=== PATIENT | female | born 1950 | race Caucasian/White ===

== ENCOUNTER 2019-03-02 23:06 | Inpatient (IN) ==
[2019-03-03 01:04] LABS: BASO# 0.02 X1000 (0.0-0.2); BASO% 0.3 % (0.0-0.8); EOS# 0.19 X1000 (0.0-0.7); EOS% 3.1 % (0.0-10.0); HEMATOCRIT 38.4 % (37.0-47.0); HEMOGLOBIN 13.2 g/dL (12.0-16.0); IMM GRAN# 0.01 X1000 (0.0-0.04); IMM GRAN% 0.2 % (0.0-0.5); LYMPH# 1.83 X1000 (1.2-3.4); LYMPH% 30.3 % (20.5-51.1); MCH 30.6 PG (27-31); MCHC 34.4 g/dL (33-37); MCV 88.9 FL (81-99); MONO# 0.48 X1000 (0.11-0.59); MONO% 7.9 % (1.7-9.3); MPV 10.2 FL (7.4-10.4); NEUT# 3.51 X1000 (1.4-6.5); NEUT% 58.2 % (42.2-75.2); PLT 213 X1000 (130-400); RBC 4.32 XMIL (4.2-5.4); RDW 12.7 % (11.5-14.5); WBC 6.04 X1000 (4.8-10.8)
[2019-03-03 01:19] LABS: AGAP 13; ALBUMIN 4.1 g/dL (3.5-5.0); ALKALINE PHOSPHATASE 102 U/L (32-104); BUN 16 mg/dL (8-22); CALCIUM 9.5 mg/dL (8.8-10.2); CHLORIDE 96 mmol/L (98-107); COSMO 286; CREATININE 0.7 mg/dL (0.5-0.9); ESTIMATED GFR > 60; GLUCOSE 171 mg/dL (70-104); GOT 28 U/L (10-30); GPT 26 U/L (10-36); POTASSIUM 3.1 mmol/L (3.5-5.1); SODIUM 141 mmol/L (136-145); TCO2 33 mmol/L (25-35); TOTAL PROTEIN 7.4 g/dL (6.3-8.3)
[2019-03-03 01:40] LABS: BILIRUBIN URINE NEGATIVE (NEGATIVE); BLOOD URINE TRACE (NEGATIVE); GLUCOSE URINE NEGATIVE (NEGATIVE); KETONE URINE NEGATIVE (NEGATIVE); LEUKOCYTES URINE 2+ (NEGATIVE); NITRITE URINE POSITIVE (NEGATIVE); PH URINE 6.5; PROTEIN URINE TRACE mg/dL (NEGATIVE); UROBILINOGEN URINE NORMAL
[2019-03-03 01:41] LABS: CLARITY SL. CLOUDY (CLEAR); COLOR YELLOW; URINE BACTERIA 4+ /HFP; URINE EPITHELIAL CELLS <10 /HPF (<10); URINE RBC TNTC /HPF (<10); URINE SOURCE CLEAN CATCH; URINE WBC 20-40 /HPF (<10)
[2019-03-03] MEDS ORDERED: ROCEPHIN 1 GM in NS 50 ML IV ONE (02:10)
[2019-03-03] MEDS ORDERED: KLOR-CON PO ONE (02:43)
--- NOTE | 2019-03-03 02:46 | PROVIDER DOCUMENTATION ---
This chart was entered by Valeria Elena Scribe, acting as scribe for Sid Teague MD. HPI-General Adult - General Chief Complaint: Fall Stated Complaint: FALL Time Seen by Provider: 03/03/19 00:26 Source: patient Allergies/Adverse Reactions: Patient Allergies Allergy/AdvReac Type Severity Reaction Status Date / Time No Known Allergies Allergy Verified 03/02/19 23:23 - History of Present Illness -Gen Adult Nature of Presenting Problems: Pt is 68/F presenting to ED after having an episode where she went to the kitchen to put something away in the sink and she lost her balance and fell onto her knees. Pt has has had multiple episodes of feeling unsteady and wobbly recently. She had fallen back into her chair just a few days prior. She sts that she has had a h/a for the last 2 weeks. The pain is more nagging than a severe h/a. Has not taken any medication for h/a. Pt has significant familial cardiac hx, w/ losing both parents in their 60's to PR. She has siblings that have also had PR, but are not at this time. Pt has not had PR , does have HTN and is on lasix. Location of Pain/Injury: reports: generalized Pain Radiation: reports: no radiation Severity: reports: mild Onset/Duration: reports: gradual Timing: reports: still present Context/Activities at Onset: reports: light activity Modifying Factors: improves with: nothing Associated Symptoms: denies: chest pain, cough, nausea, shortness of breath, vomiting Similar Symptoms Previously?: No Recently seen or treated by another doctor?: No Review of Systems - Adult - REVIEW OF SYSTEMS - ADULT Constitutional: reports: no symptoms reported. denies: chills, fever Eyes: reports: no symptoms reported Ears, Nose, Mouth & Throat: reports: no symptoms reported Cardiovascular: reports: no symptoms reported Respiratory: reports: no symptoms reported. denies: cough, shortness of breath, wheezing Gastrointestinal: reports: no symptoms reported. denies: abdominal pain, diarrhea, nausea, vomiting Genitourinary: reports: no symptoms reported Musculoskeletal: reports: no symptoms reported. denies: back pain, neck pain Integumentary: reports: no symptoms reported Neurological: reports: no symptoms reported Psychiatric: reports: no symptoms reported Endocrine: reports: no symptoms reported Hematologic/Lymphatic: reports: no symptoms reported Allergic/Immunologic: reports: no symptoms reported All Other Systems: Reviewed and Negative Past History - Adult - PAST MEDICAL HISTORY-ADULT Review of Records: reports: Old Records Reviewed, Nursing Assessment Review, Medications Reviewed, Social history reviewed & non-contributory. - SOCIAL HISTORY Smoking: quit greater than 1 year Substance Use: none/never Alcohol Use Frequency: never Living Situation: alone Physical Exam-General - PHYSICAL EXAM-ADULT Initial Vital Signs Reviewed: Yes - CONSTITUTIONAL General Appearance: appears well, alert, no apparent distress - EYES Eyes: PERRL/EOMI, pink conjunctivae - HEAD, EARS, NOSE, MOUTH & THROAT HENMT: normocephalic/atraumatic, moist mucous membranes, normal ENT inspection, TMs normal, pharynx normal - NECK Neck: non-tender, full range of motion, supple, normal inspection - RESPIRATORY Respiratory: lungs clear - CARDIOVASCULAR Cardiovascular: regular rate, rhythm - GASTROINTESTINAL (ABDOMEN) Abdominal Exam: normal bowel sounds, non tender, soft - LYMPHATIC Lymphatic: no adenopathy - MUSCULOSKELETAL Back Exam: normal inspection, no CVA tenderness, no vertebral tenderness Extremity: normal range of motion, non-tender, normal gait, normal inspection, other (bilat swelling to ankles) - SKIN Integumentary: normal color, warm/dry - NEUROLOGIC Neurologic: grossly normal - PSYCHIATRIC Psych/Mental Status: normal mood/affect, normal thought content, normal thought process, oriented x 3 Progress - PLAN OF CARE/RESULTS Progress/Plan/Lab Results: Vital Signs - 8 hr 03/02/19 23:12 Temperature 98.1 F Pulse Rate 91 H Respiratory Rate 20 Blood Pressure 145/66 O2 Sat by Pulse Oximetry 95 Orders Category Date Time Status Nursing- Obtain EKG ONCE Care 03/03/19 00:29 Active cxr [CHEST-1 VIEW] [RAD] Stat Exams 03/03/19 00:30 Ordered CBC WITH ELECTRONIC DIFF [HEME] Stat Lab 03/03/19 00:29 Uncollected COMPREHENSIVE METABOLIC PANEL [CHEM] Stat Lab 03/03/19 00:29 Uncollected TROPONIN T Stat Lab 03/03/19 00:[address] W/POSS RFLX CULT [URINALYSIS] Stat Lab 03/03/19 00:29 Uncollected EKG [EKG] Stat Ther 03/03/19 00:29 Ordered Result Diagrams: 03/03/19 00:50 03/03/19 00:50 - EKG 1 Time of EKG reading by physician:: 00:56 EKG Read and Signed by:: Sid Teague EKG Interpretation (*Must complete 3 of following elements*): Abnormal (Normal sinus rhythm, Moderate voltage criteria for LVH, may be normal variant, Nonspecific St and T wave abnormality, Abnormal ECG) Rate: 84 Rhythm: sinus Festus: normal QRS: normal [place] Interval: normal ST Wave: normal - CONSULTS/PCP/HOSPITALIST Notification #1 *Consult/PCP/Hospitalist*: [place] for Dr Victoria Time Discussed: 02:45 Consult Disposition: Admit Departure - Departure Date of Disposition Decision: 03/03/19 Time of Disposition Decision: 02:45 DIAGNOSIS: UTI (urinary tract infection), Weakness, Hypokalemia Disposition: ADMITTED INPATIENT 09 Certified Medical Emergency: Emergent Condition: Fair Referrals and Follow-Ups: Nani Burgess MD [Primary Care Provider] - - Critical Care Note This patient required my direct & personal management of CC.: No Attestation - Physician/ HECTOR Attestation Patient care was provided by Advanced Practice Provider:: No The physician spent face to face time with patient:: Yes Advanced Practice Provider documentation review:: Supervising physician onsite and consulted in the evaluation and care of this patient. The physician did have a face to face encounter with the patient. This chart was documented by the indicated scribe, (Valeria Elena, Scribe) and accurately reflects the services I performed and decisions made by me, Sid Teague MD, as attested by the provider's signature.
[2019-03-03] MEDS ORDERED: ZOFRAN IV PRN (04:39)
[2019-03-03] MEDS ORDERED: TYLENOL PO PRN (04:39)
[2019-03-03] MEDS: NS 1,000 ML IV SCH ×2 (05:55→19:39)
--- NOTE | 2019-03-03 06:18 | Diag Imaging Result Doc PS360 ---
EXAM: CHEST-1 VIEW HISTORY: weakness, htn TECHNIQUE: Chest single view COMPARISON: None. FINDINGS: The lungs are well expanded. The heart is not enlarged. The vessels are not distended. There are no infiltrates. No effusion identified. IMPRESSION: Negative exam. Electronically signed by Efren Mensah 03/03/2019 6:16 AM
[2019-03-03] MEDS ORDERED: LUNESTA PO PRN ×2 (08:42→08:48)
--- NOTE | 2019-03-03 08:51 | EKG Report ---
Test Performed on : 03/03/2019 00:56:10 AM Test Reason : weakness Blood Pressure : / mmHG Vent. Rate : 084 BPM Atrial Rate : 084 BPM P-R Int : 140 ms QRS Dur : 078 ms QT Int : 374 ms P-R-T Axes : 051 -11 000 degrees QTc Int : 441 ms Normal sinus rhythm. Moderate voltage criteria for LVH, may be normal variant Nonspecific ST and T wave abnormality Abnormal ECG No previous ECGs available Unconfirmed Result
[2019-03-03] MEDS ORDERED: HYDROCHLOROTHIAZIDE PO SCH (09:00)
[2019-03-03] MEDS ORDERED: HYZAAR 100/12.5 MG TAB PO SCH (09:00)
[2019-03-03 09:03] LABS: AGAP 9; BUN 13 mg/dL (8-22); CALCIUM 9.4 mg/dL (8.8-10.2); CHLORIDE 98 mmol/L (98-107); COSMO 286; CREATININE 0.6 mg/dL (0.5-0.9); ESTIMATED GFR > 60; GLUCOSE 215 mg/dL (70-104); POTASSIUM 3.8 mmol/L (3.5-5.1); SODIUM 140 mmol/L (136-145); TCO2 33 mmol/L (25-35)
--- NOTE | 2019-03-03 10:10 | HISTORY AND PHYSICAL ---
PRIMARY CARE PHYSICIAN: Dr. Nani Burgess. CHIEF COMPLAINT: A fall and a headache for 2 weeks. HISTORY OF PRESENTING ILLNESS: This is a 68-year-old female, who presents to [facility] ER after she states that she was in her kitchen and went to put something in her sink, lost her balance, and fell onto her knee. She has had multiple episodes of feeling unsteady recently, states that she had fallen back in her chair a few days prior, states she has had a headache for the past 2 weeks but had not taken anything for the headache. 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 She is also being worked up at this time on an outpatient basis for a suspicious mass in her right breast that is being followed by a general surgeon here in [place] and has a scheduled biopsy next week. Her workup showed a potassium of 3.1 that was supplemented with 20 of potassium in the emergency room. Her urinalysis showed positive nitrites, 2+ white blood cells, 4+ bacteria. Chest x-ray was negative. She will be admitted for further evaluation and treatment. PAST MEDICAL HISTORY: Hypertension and restless leg syndrome. PAST SURGICAL HISTORY: Left ovarian cyst removed, tonsillectomy, bilateral tubal ligation, and a cholecystectomy. FAMILY HISTORY: Heart disease in both of her parents. Her sister also had an OK. SOCIAL HISTORY: She currently lives alone. Is a former smoker but quit 10 years ago, none currently, and denied any alcohol or illicit drug use. ALLERGIES: She has no known drug allergies. HOME MEDICATIONS: She takes aripiprazole 2 mg p.o. at bedtime, zopiclone 1 mg p.o. at bedtime p.r.n., Lasix 20 mg p.o. daily, Berne 5 1 p.o. at bedtime, losartan/HCTZ 1 p.o. daily, potassium 10 mEq p.o. daily will be held, Lyrica 75 mg p.o. b.i.d, and ropinirole 4 mg p.o. at bedtime. LABORATORY DATA: Showed a white blood cell count of 6.04, hemoglobin 13.2, hematocrit 38.4, platelets 213. Sodium 141, potassium 3.1, chloride 96, CO2 33, BUN of 16, creatinine 0.7, glucose 171. Urinalysis with positive nitrites, 2+ white blood cells, 4+ bacteria. Chest x-ray showed a negative exam. REVIEW OF SYSTEMS: She denied any fever, chills, blurred vision. She has had some mild dizziness and a headache. Denied any chest pain, coughing, shortness of breath. Denied any abdominal pain, constipation, diarrhea, burning, hurting, urgency, frequency with urination. PHYSICAL EXAMINATION: VITAL SIGNS: On arrival, she had a temperature of 98.1, pulse 91, respirations 20, blood pressure 145/66, saturating 95% on room air. GENERAL: This is a 68-year-old female, who is sitting on the side of the bed, answers questions appropriately. HEEMNT: Normocephalic, atraumatic. Normal ENT inspection. Oropharynx and nares are clear. Eyes: Pupils are equal, round, and reactive to light and accommodation. Extraocular movements are intact. NECK: Normal inspection. Normal range of motion. LUNGS: Clear to auscultation bilaterally with equal lung expansion and chest wall movement. HEART: With regular rate and rhythm. No murmurs, rubs, or gallops. ABDOMEN: Soft, nontender, nondistended. Bowel sounds are present x4 quadrants. MUSCULOSKELETAL: She has 5/5 strength x4 extremities. NEUROLOGICAL: The cranial nerves II through XII appear grossly intact. ASSESSMENT: 1. Urinary tract infection. 2. Hypokalemia. 3. Headache. 4. Multiple falls. PLAN: She was admitted to the Medical Unit at [facility], placed on a regular diet. Going to recheck a BMP this morning. She did get potassium 20 mEq x1 in the emergency room. Will place her on potassium 20 mEq p.o. daily. She is on normal saline at 75 mL/hour, Rocephin 1 g IV q.24. Continue her home medications as previously identified and further orders after seen by attending. Dictated by YING Langley for Shawn Victoria MD cc: YING Langley MD Lindsay E. Smith, MD
[2019-03-03] MEDS: REQUIP PO SCH ×2 (11:28→21:20)
[2019-03-03] MEDS: KLOR-CON PO SCH (11:29)
[2019-03-03] MEDS: LYRICA PO SCH ×2 (11:29→21:23)
[2019-03-03] MEDS: LASIX PO SCH (11:30)
[2019-03-03] MEDS: COZAAR PO SCH (11:30)
--- NOTE | 2019-03-03 15:41 | HISTORY AND PHYSICAL ---
ADDENDUM: 68-year-old female. 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 She has occasional urinary tract infection but she does not have typical suprapubic symptoms, pain, dysuria. She usually gets weaker has issues but any case she came in with a urinary tract infection, generalized weakness, other workup was not that remarkable. She had some hypokalemia although that has since corrected. In any case patient was admitted. Her exam is really nonfocal. I do not appreciate anything significant on her pulmonary exam or cardiovascular exam. Her fall was not related to syncope it was just weakness. We will continue her regular medications. We will continue antibiotics and follow up on that. If she is stable, likely discharge within next 24 hours. [id number] encounter note with Lisa Reina, referred to this and to Dr. Burgess. She is on 2 different diuretics with her hypokalemia. I am going to recommend let us stop her hydrochlorothiazide. I am not sure she really requires 2 different diuretics but I will let Dr. Burgess handle that but at this point I am going to hold the hydrochlorothiazide and recommend we hold it until followup with her doctor. cc: Shawn Victoria MD
[2019-03-03] MEDS ORDERED: NORCO-5 PO SCH (21:00)
[2019-03-03] MEDS ORDERED: ABILIFY PO SCH (21:00)
[2019-03-04] MEDS ORDERED: ROCEPHIN 1 GM in NS 50 ML IV SCH (02:00)
[2019-03-04] MEDS: NS 1,000 ML IV SCH (07:45)
[2019-03-04] MEDS: KLOR-CON PO SCH ×2 (07:46→11:08)
[2019-03-04] MEDS: LASIX PO SCH ×2 (07:47→11:08)
[2019-03-04] MEDS: CELEXA PO SCH ×2 (07:47→11:07)
[2019-03-04] MEDS: LYRICA PO SCH ×2 (07:47→11:08)
[2019-03-04] MEDS: COZAAR PO SCH ×2 (07:47→11:08)
[2019-03-04 08:00] LABS: BASO# 0.02 X1000 (0.0-0.2); BASO% 0.4 % (0.0-0.8); EOS# 0.15 X1000 (0.0-0.7); HEMATOCRIT 38.3 % (37.0-47.0); HEMOGLOBIN 12.9 g/dL (12.0-16.0); IMM GRAN# 0.01 X1000 (0.0-0.04); IMM GRAN% 0.2 % (0.0-0.5); LYMPH# 1.66 X1000 (1.2-3.4); LYMPH% 33.4 % (20.5-51.1); MCH 30.3 PG (27-31); MCHC 33.7 g/dL (33-37); MCV 89.9 FL (81-99); MONO# 0.32 X1000 (0.11-0.59); MONO% 6.4 % (1.7-9.3); MPV 10.4 FL (7.4-10.4); NEUT# 2.81 X1000 (1.4-6.5); NEUT% 56.6 % (42.2-75.2); PLT 218 X1000 (130-400); RBC 4.26 XMIL (4.2-5.4); RDW 12.7 % (11.5-14.5); WBC 4.97 X1000 (4.8-10.8)
[2019-03-04 08:24] LABS: AGAP 11; BUN 9 mg/dL (8-22); CALCIUM 8.8 mg/dL (8.8-10.2); CHLORIDE 103 mmol/L (98-107); COSMO 281; CREATININE 0.5 mg/dL (0.5-0.9); ESTIMATED GFR > 60; GLUCOSE 126 mg/dL (70-104); POTASSIUM 3.4 mmol/L (3.5-5.1); SODIUM 141 mmol/L (136-145); TCO2 28 mmol/L (25-35)
[2019-03-04] MEDS ORDERED: ABILIFY PO SCH (09:00)
[2019-03-04] MEDS: REQUIP PO SCH (11:09)
[2019-03-04] MEDS ORDERED: KEFLEX PO SCH (12:45)
[2019-03-04 14:38] VITALS: BP 137/61
[2019-03-04] MEDS ORDERED: SUDAFED PO ONE (15:54)
--- NOTE | 2019-03-05 13:41 | DISCHARGE SUMMARY ---
ADMISSION DATE: 03/03/2019 DISCHARGE DATE: 03/04/2019 DISCHARGE DIAGNOSIS: A gram-negative vidya UTI. ADMIT DIAGNOSES: 1. Urinary tract infection. 2. Hypokalemia. Briefly the patient I think came in with falls and a headache. She probably has some sinus congestion. Her workup was really unremarkable. She had a urine consistent with pyuria. Microbiology grew out gram-negative vidya. She was placed on Rocephin and clinically improved. She never had a white count. She was not orthostatic. No fevers. Temperature was stable. She was felt stable for discharge next day. Her potassium is a little bit on the low side. She does take some Lasix. She is on Lasix and losartan/hydrochlorothiazide so we are going to change that. DISCHARGE CONDITION: Stable. DISCHARGE MEDICATIONS: Keflex 500 q.12 h. for 7 days, losartan was changed to losartan 50 daily, Lyrica 75 b.i.d., Klor-Con was increased to 20 daily, Lasix 20 daily, Celexa 20 daily, Abilify 2 daily, ropinirole 40 at bedtime, Ewing p.r.n., Ambien p.r.n., and Abilify 2 daily. The Klor-Con, I am going to increase to 20 b.i.d. for 2 days and then 20 daily after that. Recommend follow-up labs in [address] Burgess, and we will follow closely. COORDINATION TIME: 32-minute discharge, although I think this is just an observation patient. cc: Shawn Victoria MD
== END 2019-03-04 18:05 | disposition home or self-care (01) | DRG 690 ==
LOC: P.ED 23:06 → P.MEDSURG 03-03 04:29
PROVIDERS: ADMIT Internal Medicine; ATTEND Internal Medicine
CPT/HCPCS: 71010; 71045; 80048; 80053; 81001; 84484; 85025; 87077; 87088; 87186; 93005; 96374; 99285; A9270; J0696; J7030